=== PATIENT | female | born 1975 | race Caucasian/White ===

== ENCOUNTER → 2016-10-22 | Outpatient (CLI) | payer BC ==
--- NOTE | 2016-10-23 08:08 | XR ---
EXAMINATION TYPE: XR cervical spine comp DATE OF EXAM: 10/22/2016 COMPARISON: NONE HISTORY: Numbness down the right arm TECHNIQUE: Four views are submitted. FINDINGS: The odontoid is intact. There are no compression deformities. The prevertebral soft tissue structur es are within normal limits. Loss of the normal cervical lordosis. Mild hypertrophic change and narr owing of the disc space C5-C6. Facet arthropathy C7-T1. IMPRESSION: 1. Mild degenerative disc disease C5-C6 with loss of normal cervical lordosis. Recommend follow-up MR I..
== END | disposition home or self-care (01) ==
LOC: RADXRYALE 16:22
PROVIDERS: ATTEND Internal Medicine
DX: M50.322 Other cervical disc degeneration at C5-C6 level (principal)
CPT/HCPCS: 72050